=== PATIENT | male | born 1950 | race Caucasian/White ===

== ENCOUNTER → 2018-11-20 13:50 | Outpatient (CLI) | payer OTHER ==
[2011-07-30 01:13] VITALS: BMI 25.1
== END | disposition home or self-care (01) ==
LOC: D.CT 13:50
PROVIDERS: ATTEND Family Medicine
DX: R91.1 Solitary pulmonary nodule (principal)

== ENCOUNTER → 2019-01-09 13:24 | Outpatient (CLI) | payer OTHER ==
[2011-07-30 01:13] VITALS: BMI 25.1
== END | disposition home or self-care (01) ==
LOC: D.HCCARDIO 13:00
PROVIDERS: ATTEND Internal Medicine Cardiovascular Disease
DX: I20.9 Angina pectoris, unspecified (principal)

== ENCOUNTER → 2019-01-11 08:32 | Outpatient (CLI) | payer OTHER ==
[2011-07-30 01:13] VITALS: BMI 25.1
--- NOTE | ~2019-01-11 | ST ---
PATIENT:RIA YUEN JR MEDICAL RECORD: [id number] SEX: M LOCATION:[facility] ORDER #: ADMISSION DATE: 01/11/19 AGE OF PATIENT: 68 REFERRING PHYSICIAN: INTERPRETING PHYSICIAN: TONY HERRON MD DATE OF SERVICE: 01/11/2019 INDICATIONS: Angina, hypertension, shortness of breath. He was exercised on standard Raul protocol for 6 minutes 45 seconds achieving greater than 85% max target heart rate response with 31 mCi of sestamibi injected at peak stress, 11 mCi used previously for rest images. FINDINGS: Gated SPECT reveals preserved ejection fraction at 63% with good wall motion and thickening and brightening throughout all segments. SPECT Imaging: Cardiolite was used as myocardial fusion agent. There is homogeneous uptake throughout all segments at rest and stress with no evidence of inducible ischemia or previous infarction. OVERALL IMPRESSION: 1. This is a normal nuclear stress test with no evidence of inducible ischemia or previous infarction. 2. Gated SPECT reveals a preserved ejection fraction at 63%. In this patient with ongoing symptomatology, the current scan does not suggest the presence of hemodynamically significant coronary artery disease. Evaluate noncardiac etiology of chest pain. 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
== END | disposition home or self-care (01) ==
LOC: D.HCCARDIO 08:30
PROVIDERS: ATTEND Internal Medicine Cardiovascular Disease
DX: I20.9 Angina pectoris, unspecified (principal)

== ENCOUNTER → 2020-10-10 08:36 | Outpatient (CLI) | payer OTHER ==
[2011-07-30 01:13] VITALS: BMI 25.1
== END | disposition home or self-care (01) ==
LOC: D.US 08:36
PROVIDERS: ATTEND Family Medicine
DX: K80.80 Other cholelithiasis without obstruction (principal)